=== PATIENT | male | born 1980 | race Caucasian/White ===

== ENCOUNTER 2016-12-14 10:12 | Emergency (ER) | payer OTHER ==
[~2016-12-14] VITALS: Ht 177.8 cm; Wt 74.0 kg
[~2016-12-14 10:12] MED LIST: Z.0.NO CURRENT MEDS
[2016-12-14 10:17] VITALS: BP 131/82; PULSE 66; RESP 17; TEMP 98.2; O2SAT 99
--- NOTE | 2016-12-14 10:30 | PD ---
HPI Chief Complaint: Injury Time Seen by Provider: 10:22 Travel History International Travel<30 days: No Contact w/Intl Traveler<30days: No Traveled to known affect area: No History of Present Illness HPI The patient is a 36-year-old male who presents emergency department for right foot pain. The patient was playing soccer on Thursday night, wearing soccer cleats, when he stepped on a rock and felt a "pop ". The patient states she has limited ability to bear weight on the right foot secondary to pain, states it is worse in the morning, slightly improved throughout the day. He does note some swelling over the dorsal aspect of the foot with some tenderness over the affected area. He denies any right ankle pain or right knee pain. Symptoms are moderate, worse with weightbearing, slightly alleviated at rest. PFSH Past Medical History Medical History: Denies Significant Hx Cancer: No Cardiovascular Problems: No Diabetes: No Endocrine: No Genitourinary: No Hepatitis: No Hiatal Hernia: No Immune Disorder: No Musculoskeletal: No Neurologic: No Psychiatric: No Reproductive: No Respiratory: No Thyroid Disease: No Past Surgical History Narrative Surgical Finger surgery AICD: No Joint Replacement: No Pacemaker: No Other Surgery: No Social History Alcohol Use: Yes (OCCASIONALLY) Tobacco Use: No Substance Use: No Allergies-Medications (Allergen,Severity, Reaction): Coded Allergies: No Known Allergies (Verified , 12/14/16) Reported Meds & Prescriptions Reported Meds & Active Scripts Active No Active Prescriptions or Reported Medications Review of Systems Except as stated in HPI: all other systems reviewed are Neg Musculoskeletal: Positive: Limited ROM, Edema, Pain Neurologic: No: Paresthesia, Sensory Disturbance Physical Exam Narrative GENERAL: Awake, alert, very pleasant 36-year-old male who appears his stated age and is in no acute respiratory distress. SKIN: Focused skin assessment warm/dry. HEAD: Atraumatic. Normocephalic. EYES: Pupils equal and round. No scleral icterus. No injection or drainage. MUSCULOSKELETAL: The right foot is swollen and edematous compared to left, tender over the dorsal aspect of the proximal first, second, and third metatarsal. Mild erythema with some discoloration white spots, patient states are chronic from an bites suffered as a child. Positive dorsalis pedal pulse. Nontender over the medial lateral malleus. Nontender over the right calcaneus. Nontender of the proximal right fibula. Patient is able to move all 5 toes of the right foot. NEUROLOGICAL: Awake and alert. No obvious cranial nerve deficits. Motor grossly within normal limits. Normal speech. Sensation is intact to soft touch over the medial, lateral, dorsal aspect of the right foot. PSYCHIATRIC: Appropriate mood and affect; insight and judgment normal. Data Data Last Documented VS Vital Signs Date Time Temp Pulse Resp B/P Pulse Ox O2 Delivery O2 Flow Rate FiO2 12/14/16 10:28 Room Air 12/14/16 10:17 98.2 66 17 131/82 99 Orders Foot, Complete ([id number]) (12/14/16 ) Carmine Bandage (12/14/16 11:04) Crutches (12/14/16 11:04) [facility] Medical Decision Making Medical Screen Exam Complete: Yes Emergency Medical Condition: Yes Medical Record Reviewed: Yes Interpretation(s) Last Impressions Foot X-Ray 12/14/16 0000 Signed Impressions: Service Date/Time: Wednesday, December 14, 2016 10:41 - CONCLUSION: Unremarkable examination of the right foot. Allen Aj MD Differential Diagnosis Differential diagnosis includes fracture, dislocation, contusion, metatarsal fracture, Lisfranc fracture, hematoma. Narrative Course X-ray of the right foot was obtained. X-ray reveals no fracture or dislocation. The patient most likely has a sprain/strain with ligament injury of the affected area. The patient will be fitted for crutches, he was given a choice of Carmine wrap versus splint, the patient would prefer an Carmine wrap. He is advised to elevate, ice, follow-up with podiatry. Activity as tolerated. Return if symptoms worsen or progress. Diagnosis Primary Impression: Right foot pain Patient Instructions: General Instructions Additional Instructions: Carmine wrap and crutches as directed. Ibuprofen as directed. Follow-up with podiatry. Activity as tolerated. Elevate, ice, return if symptoms worsen or progress. Med/Other Pt SpecificInfo: Prescription(s) given Scripts Ibuprofen 600 Mg Xve318 Mg PO Q6H PRN (Pain/Inflammation) #20 TAB Ref 0 Prov:Omkar Means MD 12/14/16 Disposition: 01 DISCHARGE HOME Condition: Stable Omkar Means MD Dec 14, 2016 10:30
--- NOTE | 2016-12-14 10:56 | RADRPT ---
EXAM DATE/TIME: 12/14/2016 10:41 [facility] COMPARISON: No previous studies available for comparison. INDICATIONS : Right mid foot pain while playing soccer MEDICAL HISTORY : None. SURGICAL HISTORY : None. ENCOUNTER: Initial ACUITY: 3 days PAIN SCORE: 7/10 LOCATION: Right foot FINDINGS: Three view examination of the right foot demonstrates no soft tissue swelling, dislocation, or fractu re. The tarsal bones appear intact. The interphalangeal and metatarsophalangeal joints are intact. The calcaneus is intact. Bony mineralization is normal. CONCLUSION: Unremarkable examination of the right foot. Allen Aj MD on December 14, 2016 at 10:54 Board Certified Radiologist. This report was verified electronically.
[2016-12-14] MEDS ORDERED: IBUP-232 PO (11:06)
== END 2016-12-14 11:22 | disposition home or self-care (01) ==
LOC: PHEFT 10:12
DX: M79.671 Pain in right foot (principal); R22.41 Localized swelling, mass and lump, right lower limb; W22.09XA Striking against other stationary object, initial encounter; Y93.66 Activity, soccer
CPT/HCPCS: 73630; 99283; E0113

== ENCOUNTER → 2017-05-12 | Outpatient (CLI) | payer OTHER ==
[~2017-05-12] MED LIST changes: +IBUP-232 PO; -Z.0.NO CURRENT MEDS
[2017-05-12 08:42] LABS: MEAN CELL VOLUME 93.1 FL (80.0-100.0); MEAN CORPUSCULAR HEMOGLOBIN 31.9 PG (27.0-34.0); MEAN CORPUSCULAR HGB CONC 34.3 % (32.0-36.0); PLATELET COUNT 248 TH/MM3 (150-450); REVIEW FLAG FINAL; WHITE BLOOD COUNT 7.1 TH/MM3 (4.0-11.0)
[2017-05-12 09:19] LABS: ANION GAP 7 MEQ/L (5-15); AST (GOT) 19 U/L (15-37); BICARBONATE 26.8 MEQ/L (21.0-32.0); BLOOD UREA NITROGEN 13 MG/DL (7-18); CHLORIDE 102 MEQ/L (98-107); GLOMERULAR FILTRATION RATE 77 ML/MIN (>89); GLUCOSE,FASTING 90 MG/DL (74-99); POTASSIUM 3.9 MEQ/L (3.5-5.1); SODIUM (NA) 136 MEQ/L (136-145)
[2017-05-12 09:30] LABS: ALKALINE PHOSPHATASE 80 U/L (45-117); ALT (GPT) 24 U/L (12-78); TOTAL BILIRUBIN ADULT 0.5 MG/DL (0.2-1.0)
== END ==
LOC: CLAB 08:13
PROVIDERS: ATTEND Family Medicine
DX: Z00.00 Encounter for general adult medical examination without abnormal findings (principal)
CPT/HCPCS: 36415; 80053; 84443; 85027